=== PATIENT | male | born 1970 | race Caucasian/White ===

== ENCOUNTER 2019-08-03 16:08 | Emergency (ER) | payer MEDICAID ==
[2019-08-03] MEDS ORDERED: Ibuprofen 800 MG Tab PO ONE (16:14)
[2019-08-03] MEDS ORDERED: Ibuprofen 800 MG Tab ONE (16:33)
--- NOTE | 2019-08-03 16:48 | EDM.PDOC ---
Scribed by Eva Gutierrez 08/03/19 1931 for Carole Esparza MD ED HPI GENERAL MEDICAL PROBLEM - General Chief Complaint: Lower Extremity Injury/Pain Stated Complaint: FOOT PAIN, SWOLLEN Time Seen by Provider: 08/03/19 16:14 Source of Information: Reports: Patient, RN, RN Notes Reviewed History Limitations: Reports: No Limitations - History of Present Illness INITIAL COMMENTS - FREE TEXT/NARRATIVE: Patient presents to ER with complaint of having been wrestling around and stubbed left foot great toe and contused right plantar and dorsal aspect of right foot. He was sent to radiology from the [facility] where he was seen. He decided to check into ER now for pain medications and so he did not have to drive back over to clinic to get the results. He took a Tylenol #3 at 1500. It hurts to walk on the foot. Onset: Today Duration: Constant Location: Reports: Lower Extremity, Left, Lower Extremity, Right Quality: Reports: Ache Severity: Moderate Improves with: Reports: None Worsens with: Reports: None Associated Symptoms: Reports: No Other Symptoms Bilateral Foot Pain Score (Numeric/FACES): 8 - Related Data Allergies Allergy/AdvReac Type Severity Reaction Status Date / Time No Known Allergies Allergy Verified 08/03/19 16:20 Home Meds: Home Meds . [No Known Home Meds] 08/03/19 [History] Past Medical History - Past Health History Medical/Surgical History: Denies Medical/Surgical History Musculoskeletal History: Reports: Fracture (left ankle) - Past Surgical History Musculoskeletal Surgical History: Reports: ORIF (left ankle) Social & Family History - Family History Family Medical History: Noncontributory - Living Situation & Occupation Living situation: Reports: Occupation: Employed (self employed) Review of Systems - Review of Systems Review Of Systems: ROS reveals no pertinent complaints other than HPI. ED EXAM, GENERAL - Physical Exam Exam: See Below Exam Limited By: No Limitations General Appearance: Alert, WD/WN, No Apparent Distress Cardiovascular: Normal Peripheral Pulses Back Exam: Normal Inspection Extremities: No Pedal Edema, Joint Swelling (Left 1st toe), Other (Rt lateral foot mildly tender) Neurological: Alert, Oriented, No Motor/Sensory Deficits Psychiatric: Normal Mood Skin Exam: Warm, Dry, Intact, Other (mild/faint bruising left medial 1st toe) ED TRAUMA EXTREMITY PROCEDURES - Splinting Left Lower Extremity Splint Site: Left foot Pre-Procedure NV Status: Normal Post-Procedure NV Status: Normal Splint Material: Boot Orthotic Applied & Form Fitted By: Nurse Provider Post-Splint Application NV Check: NV Status Normal, Good Position Complications: No Course - Vital Signs Last Recorded V/S: Last Vital Signs Temp 98.8 F 08/03/19 16:14 Pulse 82 08/03/19 16:14 Resp 16 08/03/19 16:14 BP 135/76 08/03/19 16:14 Pulse Ox 97 08/03/19 16:14 - Orders/Labs/Meds Orders: Active Orders 24 hr Category Date Time Status Foot Comp Min 3V Lt [CR] Urgent Exams 08/03/19 16:13 Taken Foot Comp Min 3V Rt [CR] Urgent Exams 08/03/19 16:13 Taken Meds: Medications Discontinued Medications Generic Name Dose Route Start Last Admin Trade Name Freq PRN Reason Stop Dose Admin Ibuprofen 800 mg 08/03/19 16:14 Motrin PO 08/03/19 16:15 ONETIME ONE - Radiology Interpretation Free Text/Narrative:: [facility] Final Radiology Report Call: [phone] assistance Online chat: [email or web address] Name: JOCELYN CUEVAS Age: 49Years M Date: 08/03/2019 SSN: -- : 1970 Study: XR FOOT COMPLETE MIN 3 VIEWS RIGHT Requesting Physician: CAROLE ESPARZA Images: 3 Addl Studies: Provided Clinical History: Contrast: Contrast Medium: Contrast Amount: Contrast Method: CONFIDENTIALITY STATEMENT This report is intended only for use by the referring physician, and only in accordance with law. If you received this in error, call [phone]. Page 1 of 1 PROCEDURE INFORMATION: Exam: XR Right Foot Complete Exam date and time: 08/03/2019 4:16 PM Clinical history: 49 years old, male; Other: Stubbed foot--lateral pain TECHNIQUE: Imaging protocol: XR Right foot. Views: 3 or more views. COMPARISON: No relevant prior studies available. FINDINGS: Bones/joints: No acute fracture. Soft tissues: Unremarkable. IMPRESSION: No acute osseous process. Thank you for allowing us to participate in the care of your patient. Dictated and Authenticated by: Rex Winter MD 08/03/2019 4:32 PM Central Time ([place] & [place]) [facility] Final Radiology Report Call: [phone] assistance Online chat: [email or web address] Name: JOCELYN CUEVAS Age: 49Years M Date: 08/03/2019 SSN: -- : 1970 Study: XR FOOT COMPLETE MIN 3 VIEWS LEFT Requesting Physician: CAROLE ESPARZA Images: 3 Addl Studies: Provided Clinical History: Contrast: Contrast Medium: Contrast Amount: Contrast Method: CONFIDENTIALITY STATEMENT This report is intended only for use by the referring physician, and only in accordance with law. If you received this in error, call [phone]. Page 1 of 1 PROCEDURE INFORMATION: Exam: XR Left Foot Complete Exam date and time: 08/03/2019 4:19 PM Clinical history: 49 years old, male; Other: Stbbed toes, big toe pain TECHNIQUE: Imaging protocol: XR Left foot. Views: 3 or more views. COMPARISON: CR FOOT/ANKLE LT 03/14/2009 10:10 PM FINDINGS: Bones/joints: There is an oblique fracture through the distal aspect of the first mid phalanx. Soft tissues: Unremarkable. IMPRESSION: First mid phalanx fracture Thank you for allowing us to participate in the care of your patient. Dictated and Authenticated by: Rex Winter MD 08/03/2019 4:33 PM Central Time ([place] & [place]) Departure - Departure Time of Disposition: 16:44 Disposition: Home, Self-Care 01 Condition: Good Clinical Impression: Fracture of left great toe Qualifiers: Encounter type: initial encounter Fracture type: closed Phalanx: distal Fracture alignment: nondisplaced Qualified Code(s): S92.425A - Nondisplaced fracture of distal phalanx of left great toe, initial encounter for closed fracture Contusion of right foot Qualifiers: Encounter type: initial encounter Qualified Code(s): S90.31XA - Contusion of right foot, initial encounter - Discharge Information *PRESCRIPTION DRUG MONITORING PROGRAM REVIEWED*: No *COPY OF PRESCRIPTION DRUG MONITORING REPORT IN PATIENT ROZINA: No Instructions: Toe Fracture, [id number] Forms: ED Department Discharge Additional Instructions: Rx: [place] 5mg/325mg *Do not drive while under the influence of this medication. Use Tylenol and/or Ibuprofen as needed for day time pain. Follow directions on label for dosing and precautions. Wear splint boot on left foot. May remove the boot for showers. Use crutches as needed for comfort. Call [facility] to schedule a podiatry appointment for evaluation of the left toe fracture: [phone] - My Orders Last 24 Hours: My Active Orders 08/03/19 16:13 Foot Comp Min 3V Lt [CR] Urgent Foot Comp Min 3V Rt [CR] Urgent - Assessment/Plan Last 24 Hours: My Active Orders 08/03/19 16:13 Foot Comp Min 3V Lt [CR] Urgent Foot Comp Min 3V Rt [CR] Urgent I have read and agree with the documentation that has been completed regarding this visit. By signing this record, I attest that the documentation was completed in my physical presence and is an accurate record of the encounter.
== END 2019-08-03 16:51 | disposition home or self-care (01) ==
LOC: DL.ED 16:08
DX: S92.425A Nondisplaced fracture of distal phalanx of left great toe, initial encounter for closed fracture (principal); W22.8XXA Striking against or struck by other objects, initial encounter; Y93.72 Activity, wrestling
CPT/HCPCS: 73630; 99283; A9270